=== PATIENT | male | born 1980 | race Caucasian/White ===

== ENCOUNTER 2017-12-20 09:19 | Emergency (ER) | payer MEDICAID ==
[2017-12-20] MEDS: KETOROLAC 60 MG INJ IM (10:49)
== END 2017-12-20 11:26 | disposition home or self-care (01) ==
LOC: FTE 09:19
DX: M53.3 Sacrococcygeal disorders, not elsewhere classified (principal)
CPT/HCPCS: 72220; 96372; 99284-25

== ENCOUNTER 2018-09-16 14:39 | Inpatient (IN) | payer MEDICAID ==
[~2018-09-16 14:39] MED LIST: ROCURONIUM 50 MG INJ; SEVOFLURANE 15 MIN
[2018-09-16] MEDS: ONDANSETRON (ODT) 4 MG TAB ODT (15:10)
[2018-09-16] MEDS: FAMOTIDINE 20 MG TAB PO (15:10)
[2018-09-16] MEDS: LIDOCAINE/MYLANTA 40 ML BTL PO (15:10)
[2018-09-16 15:16] LABS: ADD MAN DIFF? NO; URINE BLOOD (Dip) POC Negative (NEGATIVE); URINE GLUCOSE (Dip) POC Negative (NEGATIVE); URINE KETONES (Dip) POC Negative (NEGATIVE); URINE LEUKOCYTE EST (Dip) POC Negative (NEGATIVE); URINE NITRITE (Dip) POC Negative (NEGATIVE); URINE TOTAL PROTEIN POC 2+ (NEGATIVE)
[2018-09-16 15:16] LABS: URINE PH (Dip) POC >=9.0 (5.0-8.5)
[2018-09-16 15:19] LABS: BASOPHILS % 0.2 % (0.0-2.0); EOSINOPHILS # 0.1 10^3/ul (0.0-0.5); EOSINOPHILS % 0.4 % (0.0-7.0); HEMATOCRIT 41.9 % (42.0-52.0); HEMOGLOBIN 14.2 g/dl (14.0-18.0); LYMPHOCYTES # 0.7 10^3/ul (0.8-2.9); LYMPHOCYTES % 4.9 % (15.0-51.0); MEAN CORPUSCULAR HEMOGLOBIN 29.9 pg (29.0-33.0); MEAN CORPUSCULAR HGB CONC 33.9 g/dl (32.0-37.0); MEAN CORPUSCULAR VOLUME 88.2 fl (82.0-101.0); MEAN PLATELET VOLUME 10.4 fl (7.4-10.4); MONOCYTE # 0.4 10^3/ul (0.3-0.9); MONOCYTES % 2.6 % (0.0-11.0); NEUTROPHIL # 13.2 10^3/ul (1.6-7.5); NEUTROPHILS % 91.3 % (39.0-77.0); PLATELET COUNT 247 10^3/UL (140-415); RED BLOOD COUNT 4.75 10^6/ul (4.70-6.10); RED CELL DISTRIBUTION WIDTH 12.1 % (11.5-14.5)
[2018-09-16 15:19] LABS: WHITE BLOOD COUNT 14.5 10^3/ul (4.8-10.8)
[2018-09-16 15:41] LABS: ALANINE AMINOTRANSFERASE 39 IU/L (13-69); ALBUMIN 4.6 g/dl (3.3-4.9); ALBUMIN/GLOBULIN RATIO 1.43; ALKALINE PHOSPHATASE 109 IU/L (42-121); ANION GAP 9 (5-13); ASPARTATE AMINO TRANSFERASE 33 IU/L (15-46); BILIRUBIN,INDIRECT 1.1 mg/dl (0-1.1); BILIRUBIN,TOTAL 1.1 mg/dl (0.2-1.3); BLOOD UREA NITROGEN 16 mg/dl (7-20); CALCIUM 9.7 mg/dl (8.4-10.2); CARBON DIOXIDE 31 mmol/L (21-31); CHLORIDE 102 mmol/L (97-110); CREATININE 0.84 mg/dl (0.61-1.24); Estimated GFR > 60 mL/min (>60); GLUCOSE 111 mg/dl (70-220); LIPASE 80 U/L (23-300); POTASSIUM 3.8 mmol/L (3.5-5.1); SODIUM 142 mmol/L (135-144); TOTAL PROTEIN 7.8 g/dl (6.1-8.1)
[2018-09-16] MEDS: PIPER-TAZO 3.375 GM IV (PMX) 100 ML IVPB (16:42)
[2018-09-16] MEDS: SODIUM CHLORIDE 0.9% 1L BAG IV* (16:42)
[2018-09-16] MEDS: morphine 4 MG/ML VIAL IV (16:51)
[2018-09-16] MEDS: ONDANSETRON 4 MG INJ IV (16:52)
[2018-09-16 17:05] LABS: LACTIC ACID 1.2 mmol/L (0.5-2.0)
[2018-09-16] MEDS ORDERED: D5-NS + KCL 20 MEQ 1,000 ML IV (17:17)
[2018-09-16] MEDS ORDERED: LIDOCAINE 1% (MPF) 30 ML INJ (17:18)
[2018-09-16] MEDS ORDERED: BUPIVACAINE 0.5%/EPI (SDV) 30 ML INJ (17:18)
[2018-09-16] MEDS ORDERED: EPHEDrine SULFATE 50 MG/5 ML SYG IV (17:30)
[2018-09-16] MEDS ORDERED: KETOROLAC 15 MG INJ IV (17:30)
[2018-09-16] MEDS ORDERED: hydrALAzine 20 MG INJ IV (17:30)
[2018-09-16] MEDS ORDERED: DIPHENHYDRAMINE 50 MG INJ IV (17:30)
[2018-09-16] MEDS ORDERED: HYDROCODONE/APAP (5/325) TAB PO (17:30)
[2018-09-16] MEDS ORDERED: morphine 2 MG INJ IV (17:30)
[2018-09-16] MEDS ORDERED: LABETALOL HCL 20MG INJ IV (17:30)
[2018-09-16] MEDS ORDERED: MEPERIDINE 25 MG INJ IV (17:30)
[2018-09-16] MEDS ORDERED: ACETAMINOPHEN 325 MG TAB PO (17:30)
[2018-09-16] MEDS ORDERED: FENTAnyl 50 MCG/ML VIAL IV ×3 (17:30)
[2018-09-16] MEDS ORDERED: HYDROmorphONE 1 MG/5 ML IV SYRINGE IV ×3 (17:30)
[2018-09-16] MEDS ORDERED: PROCHLORPERAZINE 10 MG INJ IV (17:30)
[2018-09-16] MEDS ORDERED: ONDANSETRON 4 MG INJ IV ×2 (17:30)
[2018-09-16] MEDS ORDERED: LIDOCAINE 2% (SDV) 5 ML INJ (17:34)
[2018-09-16] MEDS ORDERED: MIDAZOLAM 1 MG/ML 2 ML INJ (17:34)
[2018-09-16] MEDS ORDERED: SUCCINYLCHOLINE CHLORIDE 100 MG/5 ML SYG IV (17:34)
[2018-09-16] MEDS ORDERED: PROPOFOL 20 ML (17:34)
[2018-09-16] MEDS ORDERED: FENTAnyl 50 MCG/ML VIAL (17:35)
[2018-09-16] MEDS ORDERED: ROPIVACAINE 0.5 % 30 ML VIAL (17:44)
[2018-09-16] MEDS ORDERED: PHENYLephrine (100 MCG/ML) 10ML SYG (17:48)
[2018-09-16] MEDS ORDERED: FAMOTIDINE 20 MG INJ (17:49)
[2018-09-16] MEDS ORDERED: ONDANSETRON 4 MG INJ (17:49)
[2018-09-16] MEDS ORDERED: DEXAMETHASONE 4 MG/ML 5 ML INJ (17:49)
[2018-09-16] MEDS ORDERED: EPHEDrine SULFATE 50 MG/5 ML SYG (17:54)
[2018-09-16] MEDS ORDERED: SUGAMMADEX SODIUM 200 MG/2 ML VIAL IV ×2 (18:07→18:12)
[2018-09-16] MEDS ORDERED: KETOROLAC 30 MG INJ (18:12)
[2018-09-16] MEDS ORDERED: IPRATROPIUM (NEB) 0.5 MG/2.5 ML AMP HHN (19:00)
[2018-09-16] MEDS ORDERED: RACEPINEPHRINE 2.25%(NEB) 0.5 ML AMP HHN (19:00)
[2018-09-16] MEDS ORDERED: ALBUTEROL 0.083% (NEB) 2.5 MG/3 ML AMP HHN (19:00)
[2018-09-16] MEDS ORDERED: HYDROmorphONE 0.5 MG/0.5 ML SYG IV (21:00)
[2018-09-16] MEDS ORDERED: OXYCODONE/ACETAMINOPHEN (5/325) TAB PO (21:00)
[2018-09-16] MEDS ORDERED: NACL 0.9% 3 ML SYG IV (21:00)
[2018-09-17] MEDS ORDERED: PIPER-TAZO 3.375 GM IV (PMX) 100 ML IVPB
[2018-09-17] MEDS ORDERED: ENOXAPARIN 40 MG/0.4 ML SYG SC (07:00)
[2018-09-18] MEDS ORDERED: IBUPROFEN 600 MG TAB PO
== END 2018-09-16 21:05 | disposition home or self-care (01) | DRG 343 ==
LOC: E/R 14:39 → REC 16:43
PROC: 0DTJ4ZZ Resection of Appendix, Percutaneous Endoscopic Approach (ICD-10-PCS; principal; 2018-09-16 17:35)
DX: K35.80 Unspecified acute appendicitis (principal)
CPT/HCPCS: 74176; 80053; 81003; 83605; 83690; 85025; 87040; 88304; 93005; 96374; 99285-25

== ENCOUNTER 2018-09-28 15:04 | Emergency (ER) | payer MEDICAID | END 2018-09-28 21:44 | disposition home or self-care (01) | LOC: FTE 15:04 | DX: Z48.01 Encounter for change or removal of surgical wound dressing (principal) | CPT/HCPCS: 99281; Z7502 ==